=== PATIENT | male | born 1945 | race Hispanic/Latino ===

== ENCOUNTER 2017-10-23 02:34 | Emergency (ER) | payer OTHER ==
[2017-10-23] MEDS ORDERED: TRAMADOL HCL 50 MG TABLET ONE (03:41)
[2017-10-23] MEDS ORDERED: METHYLPREDNISOLONE SOD SUCC 125MG/2ML VIAL ONE (04:14)
== END 2017-10-23 04:47 | disposition home or self-care (01) ==
LOC: EDH 02:34
DX: M51.9 Unspecified thoracic, thoracolumbar and lumbosacral intervertebral disc disorder (principal); M25.551 Pain in right hip; I10 Essential (primary) hypertension; E78.5 Hyperlipidemia, unspecified; M19.90 Unspecified osteoarthritis, unspecified site
CPT/HCPCS: 72131; 73502; 96372; 99284; J2930

== ENCOUNTER 2018-04-05 13:43 | Emergency (ER) | payer OTHER ==
[2018-04-05] MEDS ORDERED: TETANUS/DIPHTHERIA TOXOID [ADULT] 0.5 ML VIAL IM ONE (14:51)
== END 2018-04-05 15:57 | disposition home or self-care (01) ==
LOC: EDH 13:43
DX: S61.512A Laceration without foreign body of left wrist, initial encounter (principal); E78.5 Hyperlipidemia, unspecified; I10 Essential (primary) hypertension; X58.XXXA Exposure to other specified factors, initial encounter; Y93.89 Activity, other specified; Y92.098 Other place in other non-institutional residence as the place of occurrence of the external cause; Y99.8 Other external cause status
CPT/HCPCS: 73110; 90471; 90714

== ENCOUNTER 2022-04-05 13:20 | Inpatient (IN) | payer OTHER ==
[~2022-04-05] VITALS: Ht 182.9 cm; Wt 86.2 kg
[2022-04-05 13:52] LABS: BASOPHILS % (AUTO) 0.5 % (0.0-5.0); EOSINOPHILS % (AUTO) 1.1 % (0.0-8.0); HEMATOCRIT 44.2 % (42-54); LYMPHOCYTES % (AUTO) 20.1 % (21.0-51.0); MEAN CORPUSCULAR HEMOGLOBIN 29.4 pg (27.0-33.0); MEAN CORPUSCULAR HGB CONC 33.9 g/dL (32.0-36.0); MEAN CORPUSCULAR VOLUME 86.7 fL (79-99); MONOCYTES % (AUTO) 8.9 % (3.0-13.0); NEUTROPHILS % (AUTO) 68.9 % (40.0-77.0); PLATELET COUNT (AUTO) 253 K/uL (130-400); RED CELL DISTRIBUTION WIDTH 13.2 % (11.0-15.5); WHITE BLOOD COUNT (AUTO) 10.5 K/uL (4.8-10.8)
[2022-04-05 14:24] LABS: CREATININE 1.6 mg/dL (0.5-1.5); POTASSIUM 4.1 mmol/L (3.5-5.1)
[2022-04-05 14:28] LABS: ALBUMIN 3.6 g/dL (3.5-5.0); TOTAL PROTEIN, SERUM 7.1 g/dL (6.0-8.3)
[2022-04-05] MEDS ORDERED: ONDANSETRON 4MG INJ IVP ONE (14:30)
[2022-04-05] MEDS ORDERED: MORPHINE 4 MG SYG IVP ONE (14:30)
[2022-04-05] MEDS ORDERED: IOHEXOL 350 MG/ML 100ML INFUS..BTL IV ONE (15:02)
[2022-04-05 16:05] LABS: APPEARANCE,URINE CLEAR (CLEAR); BILIRUBIN,URINE NEGATIVE (NEGATIVE); COLOR,URINE LIGHT-YELLOW (YELLOW); GLUCOSE, URINE (UA) NEGATIVE (NEGATIVE); KETONES,URINE NEGATIVE (NEGATIVE); LEUKOCYTE ESTERASE ,URINE NEGATIVE Leu/uL (NEGATIVE); NITRATE,URINE NEGATIVE (NEGATIVE); OCCULT BLOOD,URINE SMALL (NEGATIVE); PROTEIN,URINE NEGATIVE (NEGATIVE); UROBILINOGEN,URINE 0.2 mg/dL (0.2-1.0)
[2022-04-05 16:09] LABS: MUCUS,URINE RARE LPF (None Seen)
[2022-04-05] MEDS ORDERED: CEFTRIAXONE 1G VIAL IVP ONE (16:30)
[2022-04-05] MEDS ORDERED: CEFTRIAXONE 1G VIAL ONE (16:33)
[2022-04-05] MEDS ORDERED: FURO20TA4 PO (17:29)
[2022-04-05] MEDS ORDERED: OMEP20TA20 PO (17:29)
[2022-04-05] MEDS ORDERED: ROSU5TAB12 PO (17:29)
[2022-04-05] MEDS ORDERED: LISI10TA24 PO (17:29)
[2022-04-05] MEDS ORDERED: LEVO100C4 PO (17:29)
[2022-04-05] MEDS ORDERED: ONDANSETRON 4MG INJ IVP PRN (17:30)
[2022-04-05] MEDS ORDERED: ACETAMINOPHEN 325 MG TAB PO PRN (17:30)
[2022-04-05] MEDS: CEFTRIAXONE 1G VIAL IVP SCH (17:30)
[2022-04-05] MEDS: 0.9%NACL 1000ML 1,000 ML IV SCH (17:30)
[2022-04-05 18:20] VITALS: BP 146/80
[2022-04-05 20:07] VITALS: BP 141/81
[2022-04-06] VITALS (7 sets, daily range): BP systolic 100–137; BP diastolic 57–75
[2022-04-06 04:50] LABS: BASOPHILS % (AUTO) 0.5 % (0.0-5.0); EOSINOPHILS % (AUTO) 2.1 % (0.0-8.0); HEMATOCRIT 40.8 % (42-54); LYMPHOCYTES % (AUTO) 23.7 % (21.0-51.0); MEAN CORPUSCULAR HEMOGLOBIN 29.4 pg (27.0-33.0); MEAN CORPUSCULAR HGB CONC 33.3 g/dL (32.0-36.0); MEAN CORPUSCULAR VOLUME 88.1 fL (79-99); MONOCYTES % (AUTO) 10.8 % (3.0-13.0); NEUTROPHILS % (AUTO) 62.3 % (40.0-77.0); PLATELET COUNT (AUTO) 217 K/uL (130-400); RED BLOOD CELL COUNT(AUTO) 4.63 MIL/uL (4.50-6.20); RED CELL DISTRIBUTION WIDTH 13.2 % (11.0-15.5); WHITE BLOOD COUNT (AUTO) 9.7 K/uL (4.8-10.8)
[2022-04-06 05:07] LABS: ALBUMIN 2.8 g/dL (3.5-5.0); CREATININE 1.4 mg/dL (0.5-1.5); MAGNESIUM 1.8 mg/dL (1.80-2.40); POTASSIUM 4.5 mmol/L (3.5-5.1); TOTAL PROTEIN, SERUM 6.2 g/dL (6.0-8.3)
[2022-04-06] MEDS: 0.9%NACL 1000ML 1,000 ML IV SCH ×2 (05:15→18:11)
[2022-04-06] MEDS: LEVOTHYROXINE 100 MCG TABLET PO SCH (05:35)
[2022-04-06] MEDS: TAMSULOSIN HCL 0.4 MG CAP.ER.24H PO SCH (08:28)
[2022-04-06] MEDS: PANTOPRAZOLE 40 MG TAB DR PO SCH (08:28)
[2022-04-06] MEDS: ATORVASTATIN 10 MG TABLET PO SCH (08:28)
[2022-04-06] MEDS: FUROSEMIDE 20 MG TABLET PO SCH (08:28)
[2022-04-06] MEDS: LISINOPRIL 10 MG TABLET PO SCH (08:28)
[2022-04-06] MEDS ORDERED: NON-FORMULARY MEDICATION 1 EACH (Levothyroxine Sodium (Levothyroxine) 100 MCG) PO SCH (09:00)
[2022-04-06] MEDS: CEFTRIAXONE 1G VIAL IVP SCH (17:49)
[2022-04-07 03:39] VITALS: BP 113/66
[2022-04-07 05:11] LABS: CREATININE 1.2 mg/dL (0.5-1.5)
[2022-04-07] MEDS: LEVOTHYROXINE 100 MCG TABLET PO SCH (06:32)
[2022-04-07] MEDS ORDERED: IOHEXOL 350 MG/ML 100ML INFUS..BTL IV ONE (06:56)
[2022-04-07] MEDS: PANTOPRAZOLE 40 MG TAB DR PO SCH (08:21)
[2022-04-07] MEDS: FUROSEMIDE 20 MG TABLET PO SCH (08:21)
[2022-04-07] MEDS: TAMSULOSIN HCL 0.4 MG CAP.ER.24H PO SCH (08:21)
[2022-04-07] MEDS: ATORVASTATIN 10 MG TABLET PO SCH (08:21)
[2022-04-07] MEDS: LISINOPRIL 10 MG TABLET PO SCH (08:23)
[2022-04-07 11:44] LABS: INR 0.99 (0.85-1.15); PROTHROMBIN TIME 10.8 SEC (9.6-11.6)
[2022-04-07 11:45] LABS: PARTIAL THROMBOPLASTIN TIME 27.7 SEC (26.3-35.5)
[2022-04-07 12:06] VITALS: BP 148/80
[2022-04-07 16:23] VITALS: BP 140/77
[2022-04-07] MEDS: CEFTRIAXONE 1G VIAL IVP SCH (17:57)
[2022-04-07 20:15] VITALS: BP 140/90
[2022-04-07] MEDS: MORPHINE 2 MG SYG IVP PRN (20:18)
[2022-04-07] MEDS: 0.9%NACL 1000ML 1,000 ML IV SCH (22:15)
[2022-04-07 23:20] VITALS: BP 126/79
[2022-04-08] VITALS (12 sets, daily range): BP systolic 120–152; BP diastolic 71–118
[2022-04-08] MEDS: LEVOTHYROXINE 100 MCG TABLET PO SCH (06:10)
[2022-04-08] MEDS: TAMSULOSIN HCL 0.4 MG CAP.ER.24H PO SCH (07:28)
[2022-04-08] MEDS: ATORVASTATIN 10 MG TABLET PO SCH (07:29)
[2022-04-08] MEDS: LISINOPRIL 10 MG TABLET PO SCH (07:29)
[2022-04-08] MEDS: FUROSEMIDE 20 MG TABLET PO SCH (07:29)
[2022-04-08] MEDS: PANTOPRAZOLE 40 MG TAB DR PO SCH (07:29)
[2022-04-08] MEDS: 0.9%NACL 1000ML 1,000 ML IV SCH (12:10)
[2022-04-08] MEDS ORDERED: MIDAZOLAM HCL 1 MG/ML 2ML VIAL ONE (14:22)
[2022-04-08] MEDS ORDERED: IOHEXOL-350 50ML VIAL IV ONE (14:22)
[2022-04-08] MEDS ORDERED: LIDOCAINE HCL-MPF 0.5% 50ML VIAL IJ ONE (14:22)
[2022-04-08] MEDS ORDERED: FENTANYL CITRATE PF 50 MCG/1 ML 2ML VIAL ONE (14:23)
[2022-04-08 15:55] LABS: PROTHROMBIN TIME 10.9 SEC (9.6-11.6)
[2022-04-08] MEDS: CEFTRIAXONE 1G VIAL IVP SCH (18:06)
[2022-04-08] MEDS: MORPHINE 2 MG SYG IVP PRN (18:06)
[2022-04-08] MEDS: 0.9%NACL 10ML VIAL IV SCH (21:30)
[2022-04-09] VITALS: BP 114/57
[2022-04-09] MEDS: 0.9%NACL 1000ML 1,000 ML IV SCH ×2 (00:51→03:44)
[2022-04-09] MEDS: 0.9%NACL 10ML VIAL IV SCH (02:29)
[2022-04-09 04:00] VITALS: BP 151/85
[2022-04-09 04:23] LABS: HEMATOCRIT 41.7 % (42-54); MEAN CORPUSCULAR HEMOGLOBIN 29.4 pg (27.0-33.0); MEAN CORPUSCULAR HGB CONC 34.1 g/dL (32.0-36.0); MEAN CORPUSCULAR VOLUME 86.3 fL (79-99); RED BLOOD CELL COUNT(AUTO) 4.83 MIL/uL (4.50-6.20); WHITE BLOOD COUNT (AUTO) 7.4 K/uL (4.8-10.8)
[2022-04-09 04:39] LABS: CREATININE 1.2 mg/dL (0.5-1.5)
[2022-04-09] MEDS: LEVOTHYROXINE 100 MCG TABLET PO SCH (05:28)
[2022-04-09] MEDS: TAMSULOSIN HCL 0.4 MG CAP.ER.24H PO SCH (07:34)
[2022-04-09] MEDS: PANTOPRAZOLE 40 MG TAB DR PO SCH (07:34)
[2022-04-09] MEDS: LISINOPRIL 10 MG TABLET PO SCH (07:35)
[2022-04-09] MEDS: FUROSEMIDE 20 MG TABLET PO SCH (07:35)
[2022-04-09 08:00] VITALS: BP 145/83
[2022-04-09 12:00] VITALS: BP 135/68
== END 2022-04-09 17:00 | disposition home or self-care (01) | DRG 689 ==
LOC: EDH 13:20 → EDHIP 17:08 → 3BH 18:13
PROVIDERS: ADMIT Internal Medicine Infectious Disease; ATTEND Internal Medicine Infectious Disease
PROC: 0T9030Z Drainage of Right Kidney with Drainage Device, Percutaneous Approach (ICD-10-PCS; principal; 2022-04-08)
DX: N13.6 Pyonephrosis (principal); J18.9 Pneumonia, unspecified organism; N17.9 Acute kidney failure, unspecified; D72.829 Elevated white blood cell count, unspecified; K21.9 Gastro-esophageal reflux disease without esophagitis; E78.00 Pure hypercholesterolemia, unspecified; Z20.822 Contact with and (suspected) exposure to COVID-19; I10 Essential (primary) hypertension; E03.9 Hypothyroidism, unspecified; E66.01 Morbid (severe) obesity due to excess calories; E78.5 Hyperlipidemia, unspecified; E11.9 Type 2 diabetes mellitus without complications; R53.81 Other malaise; Z68.25 Body mass index [BMI] 25.0-25.9, adult
CPT/HCPCS: 36415; 50432; 71045; 74177; 74400; 80048; 80053; 81001; 83690; 83735; 84153; 84484; 85025; 85027; 85610; 85730; 87635; 87804; 87880; 93005; 99156; C1729; C1894; C9803; G0378; J0696; J2250; J2270; J2405; J3010; J3490; J7030; Q9967

== ENCOUNTER 2022-05-08 11:59 | Day surgery (SDC) | payer OTHER ==
[2022-05-06 09:25] LABS: BASOPHILS % (AUTO) 0.8 % (0.0-5.0); HEMATOCRIT 46.3 % (42-54); LYMPHOCYTES % (AUTO) 33.2 % (21.0-51.0); MEAN CORPUSCULAR HEMOGLOBIN 29.6 pg (27.0-33.0); MEAN CORPUSCULAR HGB CONC 33.5 g/dL (32.0-36.0); MEAN CORPUSCULAR VOLUME 88.5 fL (79-99); NEUTROPHILS % (AUTO) 56.5 % (40.0-77.0); PLATELET COUNT (AUTO) 237 K/uL (130-400); RED BLOOD CELL COUNT(AUTO) 5.23 MIL/uL (4.50-6.20); RED CELL DISTRIBUTION WIDTH 13.4 % (11.0-15.5); WHITE BLOOD COUNT (AUTO) 6.4 K/uL (4.8-10.8)
[2022-05-06 09:33] LABS: CREATININE 1.2 mg/dL (0.5-1.5); POTASSIUM 4.3 mmol/L (3.5-5.1)
[2022-05-06 09:40] VITALS: BP 133/78
[2022-05-06 09:40] LABS: INR 0.94 (0.85-1.15); PROTHROMBIN TIME 10.3 SEC (9.6-11.6)
[2022-05-06 09:42] LABS: PARTIAL THROMBOPLASTIN TIME 27.3 SEC (26.3-35.5)
[~2022-05-08] VITALS: Ht 182.9 cm; Wt 76.2 kg
[~2022-05-08 11:59] MED LIST: FURO20TA4 PO; LEVO100C4 PO; LISI10TA24 PO; OMEP20TA20 PO; ROSU5TAB12 PO
[2022-05-08] MEDS ORDERED: IOHEXOL-350 50ML VIAL IV ONE (13:18)
[2022-05-08] MEDS ORDERED: LIDOCAINE HCL 1% 20 ML VIAL ONE (13:18)
== END 2022-05-08 15:15 | disposition home or self-care (01) ==
LOC: DAH 11:59
PROVIDERS: ATTEND Urology
DX: N13.2 Hydronephrosis with renal and ureteral calculous obstruction (principal); I10 Essential (primary) hypertension; E03.9 Hypothyroidism, unspecified; E78.49 Other hyperlipidemia; K21.9 Gastro-esophageal reflux disease without esophagitis; Z79.01 Long term (current) use of anticoagulants; Z98.890 Other specified postprocedural states; Z79.899 Other long term (current) drug therapy; Z79.890 Hormone replacement therapy
CPT/HCPCS: 80048; 85025; 85610; 85730; 36415; 50431; J1644; Q9967; A4215; A4223; A4222; A4221; A4663

== ENCOUNTER → 2022-05-11 | Outpatient (CLI) | payer OTHER ==
[2022-05-08 14:15] VITALS: BP 138/78
== END | disposition home or self-care (01) ==
LOC: RAH 14:15
PROVIDERS: ATTEND Urology
DX: N20.0 Calculus of kidney (principal)
CPT/HCPCS: 74176

== ENCOUNTER 2023-06-19 13:07 | Emergency (ER) | payer OTHER ==
[~2023-06-19] VITALS: Ht 182.9 cm; Wt 76.2 kg
[2023-06-19 13:57] LABS: RAPID GROUP A STREP positive (NEGATIVE)
[2023-06-19 13:58] LABS: INFLUENZA TYPE A Negative For Type A (NEGATIVE); INFLUENZA TYPE B Negative For Type B (NEGATIVE); SARS-CoV-2, RNA, NAAT POSITIVE SARS CoV-2 (NEGATIVE)
[2023-06-19] MEDS ORDERED: BENZ-39 PO (14:10)
[2023-06-19 14:24] VITALS: BP 118/62; PULSE 84; RESP 18; O2SAT 94
[2023-06-19] MEDS ORDERED: CEFTRIAXONE 1G VIAL IM ONE (14:30)
== END 2023-06-19 14:42 | disposition home or self-care (01) ==
LOC: EDH 13:07
DX: U07.1 COVID-19 (principal); J02.0 Streptococcal pharyngitis; R50.9 Fever, unspecified; R05.9 Cough, unspecified; I10 Essential (primary) hypertension; E78.00 Pure hypercholesterolemia, unspecified; E03.9 Hypothyroidism, unspecified; K21.9 Gastro-esophageal reflux disease without esophagitis; Z79.899 Other long term (current) drug therapy
CPT/HCPCS: 99283; 87635; 87880; 87804 ×2; 96372; C9803; J0696

== ENCOUNTER → 2024-08-31 | Outpatient (CLI) | payer OTHER ==
[~2024-08-31] MED LIST changes: +METF-1150 PO; -ROSU5TAB12 PO; +ROSU5TAB51 PO
== END | disposition home or self-care (01) ==
LOC: RAH 13:46
PROVIDERS: ATTEND Internal Medicine Cardiovascular Disease
DX: R01.1 Cardiac murmur, unspecified (principal)
CPT/HCPCS: 93306